=== PATIENT | male | born 1960 ===

== ENCOUNTER 2023-06-07 15:01 | Inpatient (IN) | payer MEDICARE, MEDICAID, SELFPAY ==
[2023-06-07 16:19] VITALS: BP 108/61; PULSE 79; RESP 16; TEMP 36.5; O2SAT 94
[2023-06-07 16:21] VITALS: BMI 29.4
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
[2023-06-07 19:50] VITALS: BP 125/78; PULSE 92; RESP 18; TEMP 36.6; O2SAT 98
[2023-06-07] MEDS: clonazePAM 1 MG TABLET PO (21:54)
[2023-06-07] MEDS: Divalproex Sodium 500 MG TABLET.DR PO (21:54)
[2023-06-07] MEDS: risperiDONE 1 MG TABLET PO (21:55)
[2023-06-07] MEDS: traZODone HCL 50 MG TABLET PO (21:55)
[2023-06-07] MEDS: Acetaminophen 325 MG TABLET 650 MG PO (23:00)
[2023-06-08 06:00] VITALS: BP 111/58; PULSE 74; TEMP 36.3; O2SAT 95
[2023-06-08] MEDS: Levothyroxine Sodium 50 MCG TABLET PO (06:24)
[2023-06-08] MEDS: Omeprazole 40 MG CAPSULE.DR PO (06:57)
[2023-06-08] MEDS: Divalproex Sodium 500 MG TABLET.DR PO ×3 (08:30→21:54)
[2023-06-08] MEDS: Tamsulosin HCL 0.4 MG CAPSULE PO (08:30)
[2023-06-08] MEDS: FLUoxetine HCl 20 MG CAPSULE 60 MG PO (08:30)
[2023-06-08] MEDS: risperiDONE 1 MG TABLET PO ×2 (08:31→21:54)
[2023-06-08] MEDS: clonazePAM 1 MG TABLET PO ×2 (08:31→21:54)
[2023-06-08] MEDS: Acetaminophen 325 MG TABLET 650 MG PO (08:34)
[2023-06-08 08:46] LABS: MANUAL DIFF FLAG NO
[2023-06-08 08:48] LABS: Basophils Percent Auto 0.3 % (0-2); Eosinophils Absolute Auto 0.2 X10*3/uL (0.0-0.4); Eosinophils Percent Auto 2.4 % (0-4); Hematocrit 37.6 % (42.0-52.0); Hemoglobin 12.7 g/dl (14.0-18.0); Imm Gran Abs Auto 0.03 X10*3/uL (0.00-0.03); Imm Gran Pct Auto 0.5 % (0.0-0.4); Lymphocytes Absolute Auto 2.8 X10*3/uL (1.2-4.9); Lymphocytes Percent Auto 43.3 % (20-40); Mean Corpuscular HGB Conc 33.8 g/dl (31.0-36.0); Mean Corpuscular Hemoglobin 31.1 pg (27.0-33.0); Mean Corpuscular Volume 91.9 fL (80.0-98.0); Monocytes Absolute Auto 0.7 X10*3/uL (0.1-1.2); Monocytes Percent Auto 10.8 % (2-11); Neutrophils Absolute Auto 2.7 x10*3/uL (2.0-8.3); Neutrophils Percent Auto 42.7 % (45-73); Platelet Count 163 X10*3/uL (160-400); Red Blood Count 4.09 X10*6/uL (4.60-5.80); White Blood Count 6.4 X10*3/uL (4.8-10.8)
[2023-06-08 08:57] LABS: Estimated Average Glucose 97 mg/dL
[2023-06-08 09:12] LABS: Alanine Aminotransferase 33 U/L (0-40); Albumin Level 3.5 g/dL (3.5-5.0); Alkaline Phosphatase 40 U/L (39-117); Anion Gap 12 (12-20); Aspartate Amino Transferase 21 U/L (5-37); Bilirubin Total 0.3 mg/dL (0.0-1.0); Blood Urea Nitrogen 15 mg/dL (9-16); Calcium 9.3 mg/dL (8.4-10.2); Carbon Dioxide 31 mmol/L (22-29); Chloride 104 mmol/L (96-108); Cholesterol 261 mg/dL (<200); Creatinine Clr Calc Pharmacy 95.3; Estimated Glomerular Filt Rate > 60; Glucose Fasting 111 mg/dL (60-99); HDL Cholesterol 50 mg/dL (>40); LDL Cholesterol Calculated 168 mg/dL (<100); Potassium 4.2 mmol/L (3.3-5.1); Sodium 143 mmol/L (135-145); Total Protein 6.1 g/dL (6.5-8.0); Triglycerides 215 mg/dL (<150)
--- NOTE | 2023-06-08 11:31 | P.CONHOSP_ITS ---
History of Present Illness Data of Consult Service Date: 06/08/23 Primary Care Provider: Unknown Physician HPI Reason for consult: Admission H&P Pt is a 62-year-old male with a PMH significant for?hypothyroidism, GERD, BPH, OCD, and autism spectrum disorder who is admitted to M3 psychiatry unit for increasing aggressiveness and provocative behavior. Patient presents from a rest home where he has apparently been experiencing intermittent incontinence of urine and also defecating in a bag which he would then give to staff members. Medical consult for admission H&P. ?Patient seen resting comfortably on his back in his room. Patient states that he has been experiencing lower leg swelling of an undetermined amount of time. Patient does state this is a recent development. However, patient is not the most reliable of historians and is unable to provide much PMH. Patient otherwise has no acute medical complaints at this time. Denies chest pain/pressure, palpitations. No shortness of breath. Denies fever, chills, nausea, vomiting, abdominal pain. No changes to bowel or bladder habits. Labs reviewed, significant for mild normocytic anemia of 12.7/37.6, elevated triglycerides and cholesterol, but otherwise unremarkable. Review of Systems 2 Review of Systems: Lower leg edema bilaterally Otherwise patient has no acute medical complaints at this time [facility] Medical History (Updated 06/08/23 @ 12:49 by ROCCO Funez) Autism spectrum disorder OCD (obsessive compulsive disorder) GERD (gastroesophageal reflux disease) Hypothyroidism BPH (benign prostatic hyperplasia) Household Members: Other Household Members Other:: Lives in Intermediate Housing: Assisted Living Facility Do you presently have visiting nurse or other home services: No Patient Tobacco Use Status: Never used Tobacco Smoked in Last 30 Days: No e-Cigarette/Vaping Use: Never Used Patient Interested in Nicotine Replacement: No Patient Given Instructions on How to Stop Smoking: No Second Hand Smoke Exposure: No Use of substances other than those prescribed or required for medical reasons: No Currently Displaying Signs/Symptoms of Drug Intoxication Withdrawal: No Have you been hit, kicked, punched, or otherwise hurt by someone within the past year? If so, by whom?: No Do you feel safe in your current relationship?: No Current Relationship Is there a partner from a previous relationship who is making you feel unsafe now?: No Are you made to feel afraid or neglected: No Spiritual Healthcare Practices: None Reported Druze Healthcare Practices: None Reported Cultural Healthcare Practices: None Reported Advance Directives: No Advance Directives Information Provided: No Do you have thoughts of harming others: None Do you have a plan to hurt others: No Plan Recently lost weight without trying: No How much weight loss: Not applicable Eating poorly because of decreased appetite: No Nutrition screen score: 0 Nutrition Risks: No Nutritional Risk Poor oral hygiene: No Meds Allergies Allergy/AdvReac Type Severity Reaction Status Date / Time Penicillins Allergy Unknown Verified 06/07/23 16:27 Active Medications: Current Medications Acetaminophen (Acetaminophen 325 Mg Tablet) 650 mg PO Q6H PRN PRN Reason: Headache/Pain Mild Scale (1-3) Last Admin: 06/08/23 08:34 Dose: 650 mg Al Hydroxide/Mg Hydroxide (Magnesium Hydrox/Alum Hydrox 30 Ml Oral.Susp) 30 ml PO Q6H PRN PRN Reason: Heartburn/Nausea Clonazepam (Clonazepam 1 Mg Tablet) 1 mg PO BID REPLACED BY [facility] Last Admin: 06/08/23 08:31 Dose: 1 mg Divalproex Sodium (Divalproex Sodium 500 Mg Tablet.) 500 mg PO TID REPLACED BY [facility] Last Admin: 06/08/23 08:30 Dose: 500 mg Fluoxetine HCl (Fluoxetine Hcl 20 Mg Capsule) 60 mg PO DAILY REPLACED BY [facility] Last Admin: 06/08/23 08:30 Dose: 60 mg Hydroxyzine HCl (Hydroxyzine Hcl 25 Mg Tablet) 25 mg PO Q6H PRN PRN Reason: Anxiety Hydroxyzine HCl (Hydroxyzine Hcl 50 Mg Tablet) 50 mg PO Q6H PRN PRN Reason: anxiety/insomnia Levothyroxine Sodium (Levothyroxine Sodium 50 Mcg Tablet) 50 mcg PO DAILY@0600 REPLACED BY [facility] Last Admin: 06/08/23 06:24 Dose: 50 mcg Lorazepam (Lorazepam 1 Mg Tablet) 1 mg PO TID PRN PRN Reason: anxiety Magnesium Hydroxide (Milk Of Magnesia 30 Ml Oral.Susp) 30 ml PO DAILY PRN PRN Reason: Constipation Nicotine (Nicotine 21 Mg Patch.Td24) 21 mg TRANSDERMA DAILY PRN PRN Reason: smoking cessation Nicotine Polacrilex (Nicotine Polacrilex 2 Mg Gum) 4 mg BUCCAL Q2H PRN PRN Reason: Nicotine Cravings Olanzapine (Olanzapine 5 Mg Tablet) 5 mg PO TID PRN PRN Reason: agitation Omeprazole (Omeprazole 40 Mg Capsule.) 40 mg PO DAILY@0630 REPLACED BY [facility] Last Admin: 06/08/23 06:57 Dose: 40 mg Risperidone (Risperidone 1 Mg Tablet) 1 mg PO BID REPLACED BY [facility] Last Admin: 06/08/23 08:31 Dose: 1 mg Tamsulosin HCl (Tamsulosin Hcl 0.4 Mg Capsule) 0.4 mg PO DAILY REPLACED BY [facility] Last Admin: 06/08/23 08:30 Dose: 0.4 mg Trazodone HCl (Trazodone Hcl 50 Mg Tablet) 50 mg PO BEDTIME MRX1 PRN PRN Reason: Insomnia Last Admin: 06/07/23 21:55 Dose: 50 mg Home Medications Medication Instructions Recorded Confirmed Last Taken Type clonazepam 1 mg disintegrating 1 mg PO BID 06/07/23 06/07/23 Unknown History tablet divalproex 500 mg tablet,extended 500 mg PO TID 06/07/23 06/07/23 Unknown History release 24 hr fluoxetine 20 mg capsule 60 mg PO QAM 06/07/23 06/07/23 Unknown History hydroxyzine HCl 50 mg tablet 50 mg PO Q6-8H PRN Anxiety/Insomnia 06/07/23 06/07/23 Unknown History levothyroxine 50 mcg tablet 50 mcg PO DAILY 06/07/23 06/07/23 Unknown History pantoprazole 40 mg tablet,delayed 40 mg PO DAILY 06/07/23 06/07/23 Unknown History release risperidone 1 mg disintegrating 1 mg PO BID 06/07/23 06/07/23 Unknown History tablet tamsulosin 0.4 mg capsule 0.4 mg PO DAILY 06/07/23 06/07/23 Unknown History Physical Exam 2 Vital Signs and Narrative: Vital Signs: Last Vital Signs Temp 97.3 F 06/08/23 06:00 Pulse 74 06/08/23 06:00 Resp 18 06/07/23 19:50 BP 111/58 L 06/08/23 06:00 Pulse Ox 95 06/08/23 06:00 O2 Del Method Room Air 06/08/23 06:00 BMI result Body Mass Index 29.4 Constitutional: Alert, in no acute distress. Mental Status: Oriented to person, place and time. Eyes: Pupils are equal, round, and reactive to light. Ear, Nose, and Throat: Oropharynx clear, mucous membranes moist. Ears and nose without deformities. Trachea midline. Respiratory: Clear to auscultation bilaterally. No wheezing, rales, or rhonchi. Cardiovascular: S1, S2 regular. No murmurs, rubs, or gallops. Gastrointestinal: Abdomen soft, non-tender, non-distended. Normal bowel sounds. Neurologic: Cranial nerves II-XII are grossly intact bilaterally. No focal neurological deficits. Moves all extremities spontaneously. Skin: Warm, dry. Musculoskeletal: No cyanosis or clubbing. Extremities: 1+ pitting bilateral lower leg edema. Psychiatric: Normal mood and affect. Results Labs 06/08/23 08:21 06/08/23 08:21 Labs: Laboratory Results - last 24 hr 06/08/23 08:21 MCV 91.9 MCH 31.1 MCHC 33.8 RDW 13.0 Plt Count 163 MPV 10.0 Immature Gran % (Auto) 0.5 H Neut % (Auto) 42.7 L Lymph % (Auto) 43.3 H [place] % (Auto) 10.8 Eos % (Auto) 2.4 Baso % (Auto) 0.3 Lymph # (Auto) 2.8 [place] # (Auto) 0.7 Eos # (Auto) 0.2 Baso # (Auto) 0.0 Abs Immat Gran (auto) 0.03 Absolute Neuts (auto) 2.7 Absolute Nucleated RBC 0.000 Nucleated RBC % (auto) 0.0 Anion Gap 12 Estim Creat Clear Calc 95.3 Estimated GFR > 60 Fasting Glucose 111 H Estimat Average Glucose 97 Hemoglobin A1c % 5.0 Calcium 9.3 Total Bilirubin 0.3 AST 21 ALT 33 Alkaline Phosphatase 40 Total Protein 6.1 L Albumin 3.5 Triglycerides 215 H Cholesterol 261 H LDL Cholesterol, Calc 168 H HDL Cholesterol 50 Assessment and Plan (1) Medical clearance for psychiatric admission: Status: Acute Plan Pt is a 62-year-old male with a PMH significant for?hypothyroidism, GERD, BPH, OCD, and autism spectrum disorder who is admitted to M3 psychiatry unit for increasing aggressiveness and provocative behavior. Patient presents from a rest home where he has apparently been experiencing intermittent incontinence of urine and also defecating in a bag which he would then give to staff members. Medical consult for admission H&P. Mood disorder Plan as per Psychiatry Edema Patient presents with bilateral lower leg edema Low suspicion for CHF: Patient denies orthopnea, no SOB, no history of CHF Patient should elevate legs while sleeping, ambulate as tolerated, consider compression stockings if edema persists Hypothyroidism Continue levothyroxine BPH Continue tamsulosin GERD Continue PPI Thank you for allowing us to participate in the care of this patient. Signing off at this time. Please re-consult if any acute complaints or issues arise.
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
[2023-06-08 20:00] VITALS: BP 134/72; PULSE 72; RESP 16; TEMP 36.7; O2SAT 97
[2023-06-08] MEDS: traZODone HCL 50 MG TABLET PO (21:54)
[2023-06-09] MEDS: Levothyroxine Sodium 50 MCG TABLET PO (06:12)
[2023-06-09] MEDS: Omeprazole 40 MG CAPSULE.DR PO (07:06)
[2023-06-09 07:20] VITALS: BP 108/52; PULSE 66; TEMP 36.6; O2SAT 93
[2023-06-09] MEDS: FLUoxetine HCl 20 MG CAPSULE 60 MG PO (08:07)
[2023-06-09] MEDS: risperiDONE 1 MG TABLET PO ×2 (08:08→23:02)
[2023-06-09] MEDS: Tamsulosin HCL 0.4 MG CAPSULE PO (08:08)
[2023-06-09] MEDS: Divalproex Sodium 500 MG TABLET.DR PO ×3 (08:08→23:02)
[2023-06-09] MEDS: clonazePAM 1 MG TABLET PO ×2 (08:08→23:02)
--- NOTE | 2023-06-09 08:51 | P.PNPSI_ITS ---
Subjective Subjective Date of Service: 06/09/23 Reason For Visit: OCD, autism spectrum disorder Subjective Notes: Conditional Voluntary Interim History: Pt in bed, minimally engaging in conversation. He denies SI/HI. he denies VH/AH. He reports sleeping through the night but still tired during the day. He denies any physical concerns. Encouraged to get out of bed. No behavioral concerns. Review of Systems Review of Systems Lower leg edema bilaterally Otherwise patient has no acute medical complaints at this time Yes Unobtainable due to mental status Mental Status Exam Mental Status Exam Patient Appearance: Appropriate ( in hospital attire) and Unkempt Patient Orientation: Person and Situation Level of Consciousness: Awake Patient Behavior: Guarded and Passive Mood Description: Calm Affect Description: Blunted Patient Cognition Impaired: Yes Ability to Follow Directions: Fair Speech Pattern: Clear Diagnostics Vital Signs (24Hr): Vital Signs - 24 hr 06/08/23 20:00 06/09/23 07:20 Temperature 98.1 F 97.9 F Pulse Rate 72 93 Respiratory Rate 16 Blood Pressure 134/72 108/52 L Pulse Oximetry 97 66 L Oxygen Delivery Method Room Air Room Air BMI result Body Mass Index 29.4 Labs 06/08/23 08:21 06/08/23 08:21 Labs: Laboratory Results - last 48 hr 06/08/23 08:21 WBC 6.4 RBC 4.09 L Hgb 12.7 L Hct 37.6 L MCV 91.9 MCH 31.1 MCHC 33.8 RDW 13.0 Plt Count 163 MPV 10.0 Immature Gran % (Auto) 0.5 H Neut % (Auto) 42.7 L Lymph % (Auto) 43.3 H [place] % (Auto) 10.8 Eos % (Auto) 2.4 Baso % (Auto) 0.3 Lymph # (Auto) 2.8 [place] # (Auto) 0.7 Eos # (Auto) 0.2 Baso # (Auto) 0.0 Abs Immat Gran (auto) 0.03 Absolute Neuts (auto) 2.7 Absolute Nucleated RBC 0.000 Nucleated RBC % (auto) 0.0 Sodium 143 Potassium 4.2 Chloride 104 Carbon Dioxide 31 H Anion Gap 12 BUN 15 Creatinine 0.86 Estim Creat Clear Calc 95.3 Estimated GFR > 60 Fasting Glucose 111 H Estimat Average Glucose 97 Hemoglobin A1c % 5.0 Calcium 9.3 Total Bilirubin 0.3 AST 21 ALT 33 Alkaline Phosphatase 40 Total Protein 6.1 L Albumin 3.5 Triglycerides 215 H Cholesterol 261 H LDL Cholesterol, Calc 168 H HDL Cholesterol 50 Medications Medications Current Medications Acetaminophen (Acetaminophen 325 Mg Tablet) 650 mg PO Q6H PRN PRN Reason: Headache/Pain Mild Scale (1-3) Last Admin: 06/08/23 08:34 Dose: 650 mg Al Hydroxide/Mg Hydroxide (Magnesium Hydrox/Alum Hydrox 30 Ml Oral.Susp) 30 ml PO Q6H PRN PRN Reason: Heartburn/Nausea Clonazepam (Clonazepam 1 Mg Tablet) 1 mg PO BID [facility] Last Admin: 06/09/23 08:08 Dose: 1 mg Divalproex Sodium (Divalproex Sodium 500 Mg Tablet.) 500 mg PO TID [facility] Last Admin: 06/09/23 08:08 Dose: 500 mg Fluoxetine HCl (Fluoxetine Hcl 20 Mg Capsule) 60 mg PO DAILY [facility] Last Admin: 06/09/23 08:07 Dose: 60 mg Hydroxyzine HCl (Hydroxyzine Hcl 25 Mg Tablet) 25 mg PO Q6H PRN PRN Reason: Anxiety Hydroxyzine HCl (Hydroxyzine Hcl 50 Mg Tablet) 50 mg PO Q6H PRN PRN Reason: anxiety/insomnia Levothyroxine Sodium (Levothyroxine Sodium 50 Mcg Tablet) 50 mcg PO DAILY@0600 [facility] Last Admin: 06/09/23 06:12 Dose: 50 mcg Lorazepam (Lorazepam 1 Mg Tablet) 1 mg PO TID PRN PRN Reason: anxiety Magnesium Hydroxide (Milk Of Magnesia 30 Ml Oral.Susp) 30 ml PO DAILY PRN PRN Reason: Constipation Nicotine (Nicotine 21 Mg Patch.Td24) 21 mg TRANSDERMA DAILY PRN PRN Reason: smoking cessation Nicotine Polacrilex (Nicotine Polacrilex 2 Mg Gum) 4 mg BUCCAL Q2H PRN PRN Reason: Nicotine Cravings Olanzapine (Olanzapine 5 Mg Tablet) 5 mg PO TID PRN PRN Reason: agitation Omeprazole (Omeprazole 40 Mg Capsule.) 40 mg PO DAILY@0630 [facility] Last Admin: 06/09/23 07:06 Dose: 40 mg Risperidone (Risperidone 1 Mg Tablet) 1 mg PO BID [facility] Last Admin: 06/09/23 08:08 Dose: 1 mg Tamsulosin HCl (Tamsulosin Hcl 0.4 Mg Capsule) 0.4 mg PO DAILY [facility] Last Admin: 06/09/23 08:08 Dose: 0.4 mg Trazodone HCl (Trazodone Hcl 50 Mg Tablet) 50 mg PO BEDTIME MRX1 PRN PRN Reason: Insomnia Last Admin: 06/08/23 21:54 Dose: 50 mg Allergies Allergies Allergy/AdvReac Type Severity Reaction Status Date / Time Penicillins Allergy Unknown Verified 06/07/23 16:27 Assessment & Plan Assessment & Plan (1) Psychosis: Status: Acute Code(s): F29 - Unspecified psychosis not due to a substance or known physiological condition Plan the patient is a middle-aged male with poor social support recently discharged from [facility] due to sexually inappropriate behavior was brought from another center due to sexual disinhibition, poor impulse control a and psychotic symptoms. The patient is a very poor historian he is unable to provide further details regarding his past medical history or psychiatric history. Plan 06/09 continue tx. Reason for continued inpatient stay Substantial Risk for: inability to function Time Spent With Patient Time: Total time managing care of this patient today ____ minutes.
[2023-06-09 19:49] VITALS: BP 122/59; PULSE 90; TEMP 36.8; O2SAT 95
[2023-06-09] MEDS: traZODone HCL 50 MG TABLET PO (23:03)
[2023-06-10 07:40] VITALS: BP 130/66; PULSE 85; RESP 24; TEMP 36.3; O2SAT 93
[2023-06-10] MEDS: Levothyroxine Sodium 50 MCG TABLET PO (10:00)
[2023-06-10] MEDS: Divalproex Sodium 500 MG TABLET.DR PO ×3 (10:00→21:58)
[2023-06-10] MEDS: Omeprazole 40 MG CAPSULE.DR PO (10:00)
[2023-06-10] MEDS: risperiDONE 1 MG TABLET PO ×2 (10:00→21:58)
[2023-06-10] MEDS: Tamsulosin HCL 0.4 MG CAPSULE PO (10:00)
[2023-06-10] MEDS: clonazePAM 1 MG TABLET PO ×2 (10:00→21:58)
[2023-06-10] MEDS: FLUoxetine HCl 20 MG CAPSULE 60 MG PO (10:00)
[2023-06-10] MEDS: Acetaminophen 325 MG TABLET 650 MG PO (10:27)
--- NOTE | 2023-06-10 14:05 | HO.PSYCHPN ---
Subjective Subjective Date of Service: 06/10/23 Reason For Visit: OCD, autism spectrum disorder Subjective Notes: Conditional Voluntary Interim History: Pt again in bed, minimally engaging in conversation. He denies SI/HI. he denies VH/AH. He reports sleeping through the night but still tired during the day. He denies any physical concerns. Encouraged to get out of bed. No behavioral concerns. Review of Systems Review of Systems Lower leg edema bilaterally Otherwise patient has no acute medical complaints at this time Yes Unobtainable due to mental status Mental Status Exam Mental Status Exam Patient Appearance: Appropriate ( in hospital attire) and Unkempt Patient Orientation: Person and Situation Level of Consciousness: Awake Patient Behavior: Guarded and Passive Mood Description: Calm Affect Description: Blunted Patient Cognition Impaired: Yes Ability to Follow Directions: Fair Speech Pattern: Clear Diagnostics Vital Signs (24Hr): Vital Signs - 24 hr 06/09/23 19:49 06/10/23 07:40 Temperature 98.2 F 97.3 F Pulse Rate 90 85 Respiratory Rate 24 H Blood Pressure 122/59 L 130/66 Pulse Oximetry 95 93 Oxygen Delivery Method Room Air Room Air BMI result Body Mass Index 29.4 Labs 06/08/23 08:21 06/08/23 08:21 Medications Medications Current Medications Acetaminophen (Acetaminophen 325 Mg Tablet) 650 mg PO Q6H PRN PRN Reason: Headache/Pain Mild Scale (1-3) Last Admin: 06/10/23 10:27 Dose: 650 mg Al Hydroxide/Mg Hydroxide (Magnesium Hydrox/Alum Hydrox 30 Ml Oral.Susp) 30 ml PO Q6H PRN PRN Reason: Heartburn/Nausea Clonazepam (Clonazepam 1 Mg Tablet) 1 mg PO BID [facility] Last Admin: 06/10/23 10:00 Dose: 1 mg Divalproex Sodium (Divalproex Sodium 500 Mg Tablet.Dr) 500 mg PO TID [facility] Last Admin: 06/10/23 10:00 Dose: 500 mg Fluoxetine HCl (Fluoxetine Hcl 20 Mg Capsule) 60 mg PO DAILY [facility] Last Admin: 06/10/23 10:00 Dose: 60 mg Hydroxyzine HCl (Hydroxyzine Hcl 25 Mg Tablet) 25 mg PO Q6H PRN PRN Reason: Anxiety Hydroxyzine HCl (Hydroxyzine Hcl 50 Mg Tablet) 50 mg PO Q6H PRN PRN Reason: anxiety/insomnia Levothyroxine Sodium (Levothyroxine Sodium 50 Mcg Tablet) 50 mcg PO DAILY@0600 [facility] Last Admin: 06/10/23 10:00 Dose: 50 mcg Lorazepam (Lorazepam 1 Mg Tablet) 1 mg PO TID PRN PRN Reason: anxiety Magnesium Hydroxide (Milk Of Magnesia 30 Ml Oral.Susp) 30 ml PO DAILY PRN PRN Reason: Constipation Nicotine (Nicotine 21 Mg Patch.Td24) 21 mg TRANSDERMA DAILY PRN PRN Reason: smoking cessation Nicotine Polacrilex (Nicotine Polacrilex 2 Mg Gum) 4 mg BUCCAL Q2H PRN PRN Reason: Nicotine Cravings Olanzapine (Olanzapine 5 Mg Tablet) 5 mg PO TID PRN PRN Reason: agitation Omeprazole (Omeprazole 40 Mg Capsule.Dr) 40 mg PO DAILY@0630 [facility] Last Admin: 06/10/23 10:00 Dose: 40 mg Risperidone (Risperidone 1 Mg Tablet) 1 mg PO BID [facility] Last Admin: 06/10/23 10:00 Dose: 1 mg Tamsulosin HCl (Tamsulosin Hcl 0.4 Mg Capsule) 0.4 mg PO DAILY [facility] Last Admin: 06/10/23 10:00 Dose: 0.4 mg Trazodone HCl (Trazodone Hcl 50 Mg Tablet) 50 mg PO BEDTIME MRX1 PRN PRN Reason: Insomnia Last Admin: 06/09/23 23:03 Dose: 50 mg Allergies Allergies Allergy/AdvReac Type Severity Reaction Status Date / Time Penicillins Allergy Unknown Verified 06/07/23 16:27 Assessment & Plan Assessment & Plan (1) Psychosis: Status: Acute Code(s): F29 - Unspecified psychosis not due to a substance or known physiological condition Plan the patient is a middle-aged male with poor social support recently discharged from [place] due to sexually inappropriate behavior was brought from another center due to sexual disinhibition, poor impulse control a and psychotic symptoms. The patient is a very poor historian he is unable to provide further details regarding his past medical history or psychiatric history. Plan 06/09 continue tx. 06/10 continue tx. Reason for continued inpatient stay Substantial Risk for: inability to function Time Spent With Patient Time: Total time managing care of this patient today ____ minutes.
[2023-06-10 19:35] VITALS: BP 123/75; PULSE 106; RESP 18; TEMP 36.9
[2023-06-10] MEDS: traZODone HCL 50 MG TABLET PO (21:57)
[2023-06-11] MEDS: Levothyroxine Sodium 50 MCG TABLET PO (06:35)
[2023-06-11] MEDS: Omeprazole 40 MG CAPSULE.DR PO (06:36)
[2023-06-11 07:55] VITALS: BP 121/62; PULSE 78; RESP 20; TEMP 36.4; O2SAT 93
[2023-06-11] MEDS: Tamsulosin HCL 0.4 MG CAPSULE PO (09:16)
[2023-06-11] MEDS: risperiDONE 1 MG TABLET PO ×2 (09:16→20:51)
[2023-06-11] MEDS: clonazePAM 1 MG TABLET PO ×2 (09:16→20:51)
[2023-06-11] MEDS: FLUoxetine HCl 20 MG CAPSULE 60 MG PO (09:16)
[2023-06-11] MEDS: Divalproex Sodium 500 MG TABLET.DR PO ×3 (09:16→20:51)
[2023-06-11] MEDS: Acetaminophen 325 MG TABLET 650 MG PO (09:17)
--- NOTE | 2023-06-11 16:40 | P.PNPSI_ITS ---
Subjective Subjective Date of Service: 06/11/23 Reason For Visit: OCD, autism spectrum disorder Subjective Notes: Conditional Voluntary Interim History: Pt more visible today. out in the milieu. He denies SI/HI. he denies VH/AH.Superficial about his reports. He denies any physical concerns. Encouraged to get out of bed. No behavioral concerns. Review of Systems Review of Systems Lower leg edema bilaterally Otherwise patient has no acute medical complaints at this time Yes Unobtainable due to mental status Mental Status Exam Mental Status Exam Patient Appearance: Appropriate ( in hospital attire) and Unkempt Patient Orientation: Person and Situation Level of Consciousness: Awake Patient Behavior: Guarded and Passive Mood Description: Calm Affect Description: Blunted Patient Cognition Impaired: Yes Ability to Follow Directions: Fair Speech Pattern: Clear Diagnostics Vital Signs (24Hr): Vital Signs - 24 hr 06/10/23 19:35 06/11/23 07:55 Temperature 98.4 F 97.6 F Pulse Rate 106 H 78 Respiratory Rate 18 20 Blood Pressure 123/75 121/62 Pulse Oximetry 93 Oxygen Delivery Method Room Air BMI result Body Mass Index 29.4 Labs 06/08/23 08:21 06/08/23 08:21 Medications Medications Current Medications Acetaminophen (Acetaminophen 325 Mg Tablet) 650 mg PO Q6H PRN PRN Reason: Headache/Pain Mild Scale (1-3) Last Admin: 06/11/23 09:17 Dose: 650 mg Al Hydroxide/Mg Hydroxide (Magnesium Hydrox/Alum Hydrox 30 Ml Oral.Susp) 30 ml PO Q6H PRN PRN Reason: Heartburn/Nausea Clonazepam (Clonazepam 1 Mg Tablet) 1 mg PO BID [facility] Last Admin: 06/11/23 09:16 Dose: 1 mg Divalproex Sodium (Divalproex Sodium 500 Mg Tablet.) 500 mg PO TID [facility] Last Admin: 06/11/23 15:42 Dose: 500 mg Fluoxetine HCl (Fluoxetine Hcl 20 Mg Capsule) 60 mg PO DAILY [facility] Last Admin: 06/11/23 09:16 Dose: 60 mg Hydroxyzine HCl (Hydroxyzine Hcl 25 Mg Tablet) 25 mg PO Q6H PRN PRN Reason: Anxiety Hydroxyzine HCl (Hydroxyzine Hcl 50 Mg Tablet) 50 mg PO Q6H PRN PRN Reason: anxiety/insomnia Levothyroxine Sodium (Levothyroxine Sodium 50 Mcg Tablet) 50 mcg PO DAILY@0600 [facility] Last Admin: 06/11/23 06:35 Dose: 50 mcg Lorazepam (Lorazepam 1 Mg Tablet) 1 mg PO TID PRN PRN Reason: anxiety Magnesium Hydroxide (Milk Of Magnesia 30 Ml Oral.Susp) 30 ml PO DAILY PRN PRN Reason: Constipation Nicotine (Nicotine 21 Mg Patch.Td24) 21 mg TRANSDERMA DAILY PRN PRN Reason: smoking cessation Nicotine Polacrilex (Nicotine Polacrilex 2 Mg Gum) 4 mg BUCCAL Q2H PRN PRN Reason: Nicotine Cravings Olanzapine (Olanzapine 5 Mg Tablet) 5 mg PO TID PRN PRN Reason: agitation Omeprazole (Omeprazole 40 Mg Capsule.Dr) 40 mg PO DAILY@0630 [facility] Last Admin: 06/11/23 06:36 Dose: 40 mg Risperidone (Risperidone 1 Mg Tablet) 1 mg PO BID [facility] Last Admin: 06/11/23 09:16 Dose: 1 mg Tamsulosin HCl (Tamsulosin Hcl 0.4 Mg Capsule) 0.4 mg PO DAILY [facility] Last Admin: 06/11/23 09:16 Dose: 0.4 mg Trazodone HCl (Trazodone Hcl 50 Mg Tablet) 50 mg PO BEDTIME MRX1 PRN PRN Reason: Insomnia Last Admin: 06/10/23 21:57 Dose: 50 mg Allergies Allergies Allergy/AdvReac Type Severity Reaction Status Date / Time Penicillins Allergy Unknown Verified 06/07/23 16:27 Assessment & Plan Assessment & Plan (1) Psychosis: Status: Acute Code(s): F29 - Unspecified psychosis not due to a substance or known physiological condition Plan the patient is a middle-aged male with poor social support recently discharged from [place] due to sexually inappropriate behavior was brought from another center due to sexual disinhibition, poor impulse control a and psychotic symptoms. The patient is a very poor historian he is unable to provide further details regarding his past medical history or psychiatric history. Plan 06/09 continue tx. 06/10 continue tx. 06/11 continue tx. Reason for continued inpatient stay Substantial Risk for: inability to function Time Spent With Patient Time: Total time managing care of this patient today ____ minutes.
[2023-06-11 20:15] VITALS: BP 125/77; PULSE 105; TEMP 36.6; O2SAT 93
[2023-06-11] MEDS: hydrOXYzine HCL 50 MG TABLET PO (20:52)
[2023-06-12] MEDS: Levothyroxine Sodium 50 MCG TABLET PO (06:34)
[2023-06-12] MEDS: Omeprazole 40 MG CAPSULE.DR PO (06:34)
[2023-06-12 08:00] VITALS: BP 113/61; PULSE 65; RESP 16; TEMP 36.2; O2SAT 98
[2023-06-12] MEDS: risperiDONE 1 MG TABLET PO ×2 (08:51→21:04)
[2023-06-12] MEDS: FLUoxetine HCl 20 MG CAPSULE 60 MG PO (08:51)
[2023-06-12] MEDS: clonazePAM 1 MG TABLET PO ×2 (08:51→21:04)
[2023-06-12] MEDS: Divalproex Sodium 500 MG TABLET.DR PO ×3 (08:51→21:03)
[2023-06-12] MEDS: Tamsulosin HCL 0.4 MG CAPSULE PO (08:51)
--- NOTE | 2023-06-12 12:39 | PC.NURSE ---
Sagar was incontinent of urine in bed this morning. He was assisted to shower by this RN. He displayed OCD behaviors during shower . He was resistant to removing old ekg lead stickers and old bandaids. He was then adamant that he must keep them for reuse. He was persuaded to remove them and allow this nurse to throw away the used bandages if new ones were provided to him.
--- NOTE | 2023-06-12 15:32 | HO.PSYCHPN ---
Subjective Subjective Date of Service: 06/12/23 Reason For Visit: OCD, autism spectrum disorder Interim History: appears slowed, low intellectual function. poor historian, unable to supply a cogent narrative for how he came to be in the hospital. per staff, pleasant, visible, social. eating well, sleeping well. tremor in RLE. poor hygiene. no concerning behaviors. Mental Status Exam Mental Status Exam Narrative: calm, cooperative. no PMA/PMR. speech decr amount, loudness. incr latency. decr prosody. thoughts linear and logical. affect constricted, hypo-intense, non-labile. mood not assessed. no SI/HI/AVH expressed. Diagnostics Vital Signs (24Hr): Vital Signs - 24 hr 06/11/23 20:15 06/12/23 08:00 Temperature 97.8 F 97.1 F Pulse Rate 105 H 65 Respiratory Rate 16 Blood Pressure 125/77 113/61 Pulse Oximetry 93 98 Oxygen Delivery Method Room Air Room Air BMI result Body Mass Index 29.4 Labs 06/08/23 08:21 06/08/23 08:21 Medications Medications Current Medications Acetaminophen (Acetaminophen 325 Mg Tablet) 650 mg PO Q6H PRN PRN Reason: Headache/Pain Mild Scale (1-3) Last Admin: 06/11/23 09:17 Dose: 650 mg Al Hydroxide/Mg Hydroxide (Magnesium Hydrox/Alum Hydrox 30 Ml Oral.Susp) 30 ml PO Q6H PRN PRN Reason: Heartburn/Nausea Clonazepam (Clonazepam 1 Mg Tablet) 1 mg PO BID [facility] Last Admin: 06/12/23 08:51 Dose: 1 mg Divalproex Sodium (Divalproex Sodium 500 Mg Tablet.) 500 mg PO TID [facility] Last Admin: 06/12/23 14:50 Dose: 500 mg Fluoxetine HCl (Fluoxetine Hcl 20 Mg Capsule) 60 mg PO DAILY [facility] Last Admin: 06/12/23 08:51 Dose: 60 mg Hydroxyzine HCl (Hydroxyzine Hcl 25 Mg Tablet) 25 mg PO Q6H PRN PRN Reason: Anxiety Hydroxyzine HCl (Hydroxyzine Hcl 50 Mg Tablet) 50 mg PO Q6H PRN PRN Reason: anxiety/insomnia Last Admin: 06/11/23 20:52 Dose: 50 mg Levothyroxine Sodium (Levothyroxine Sodium 50 Mcg Tablet) 50 mcg PO DAILY@0600 [facility] Last Admin: 06/12/23 06:34 Dose: 50 mcg Lorazepam (Lorazepam 1 Mg Tablet) 1 mg PO TID PRN PRN Reason: anxiety Magnesium Hydroxide (Milk Of Magnesia 30 Ml Oral.Susp) 30 ml PO DAILY PRN PRN Reason: Constipation Nicotine (Nicotine 21 Mg Patch.Td24) 21 mg TRANSDERMA DAILY PRN PRN Reason: smoking cessation Nicotine Polacrilex (Nicotine Polacrilex 2 Mg Gum) 4 mg BUCCAL Q2H PRN PRN Reason: Nicotine Cravings Olanzapine (Olanzapine 5 Mg Tablet) 5 mg PO TID PRN PRN Reason: agitation Omeprazole (Omeprazole 40 Mg Capsule.Dr) 40 mg PO DAILY@0630 [facility] Last Admin: 06/12/23 06:34 Dose: 40 mg Risperidone (Risperidone 1 Mg Tablet) 1 mg PO BID [facility] Last Admin: 06/12/23 08:51 Dose: 1 mg Tamsulosin HCl (Tamsulosin Hcl 0.4 Mg Capsule) 0.4 mg PO DAILY [facility] Last Admin: 06/12/23 08:51 Dose: 0.4 mg Trazodone HCl (Trazodone Hcl 50 Mg Tablet) 50 mg PO BEDTIME MRX1 PRN PRN Reason: Insomnia Last Admin: 06/10/23 21:57 Dose: 50 mg Allergies Allergies Allergy/AdvReac Type Severity Reaction Status Date / Time Penicillins Allergy Unknown Verified 06/07/23 16:27 Assessment & Plan Assessment & Plan (1) Psychosis: Status: Acute Code(s): F29 - Unspecified psychosis not due to a substance or known physiological condition Plan the patient is a middle-aged male with poor social support recently discharged from [place] due to sexually inappropriate behavior was brought from another center due to sexual disinhibition, poor impulse control a and psychotic symptoms. The patient is a very poor historian he is unable to provide further details regarding his past medical history or psychiatric history. Plan 06/09: continue tx. 06/10: continue tx. 06/11: continue tx. 06/12: behaviors in control, no inappropriate sexual conduct. continue current mgmt. outpt staff to come tomorrow to assess pt's level of functioning. Reason for continued inpatient stay Substantial Risk for: harm to others and inability to function Time Spent With Patient Time: Total time managing care of this patient today _35___ minutes.
[2023-06-12 20:00] VITALS: PULSE 86; RESP 16; TEMP 36.3; O2SAT 99
[2023-06-12] MEDS: Acetaminophen 325 MG TABLET 650 MG PO (21:03)
[2023-06-13] MEDS: Levothyroxine Sodium 50 MCG TABLET PO (06:20)
[2023-06-13 08:18] VITALS: BP 116/62; PULSE 82; RESP 22; TEMP 36.5; O2SAT 92
[2023-06-13] MEDS: Omeprazole 40 MG CAPSULE.DR PO (09:18)
[2023-06-13] MEDS: clonazePAM 1 MG TABLET PO ×2 (09:18→21:23)
[2023-06-13] MEDS: risperiDONE 1 MG TABLET PO ×2 (09:18→21:23)
[2023-06-13] MEDS: Tamsulosin HCL 0.4 MG CAPSULE PO (09:18)
[2023-06-13] MEDS: FLUoxetine HCl 20 MG CAPSULE 60 MG PO (09:18)
[2023-06-13] MEDS: Divalproex Sodium 500 MG TABLET.DR PO ×3 (09:18→21:23)
--- NOTE | 2023-06-13 15:46 | P.PNPSI_ITS ---
Subjective Subjective Date of Service: 06/13/23 Reason For Visit: OCD, autism spectrum disorder Interim History: reports he did not meet with [facility] staff today. states he is eating, sleeping, making friends here. reports occasional incontinence. asks am i in trouble? some derailment. Mental Status Exam Mental Status Exam Narrative: calm, cooperative. no PMA/PMR. speech decr amount, loudness. incr latency. decr prosody. thoughts linear and logical, some derailment. affect constricted, hypo-intense, non-labile. mood not assessed. no SI/HI/AVH expressed. Diagnostics Vital Signs (24Hr): Vital Signs - 24 hr 06/12/23 20:00 06/13/23 08:18 Temperature 97.3 F 97.7 F Pulse Rate 86 82 Respiratory Rate 16 22 H Blood Pressure 116/62 Pulse Oximetry 99 92 Oxygen Delivery Method Room Air Room Air BMI result Body Mass Index 29.4 Labs 06/08/23 08:21 06/08/23 08:21 Medications Medications Current Medications Acetaminophen (Acetaminophen 325 Mg Tablet) 650 mg PO Q6H PRN PRN Reason: Headache/Pain Mild Scale (1-3) Last Admin: 06/12/23 21:03 Dose: 650 mg Al Hydroxide/Mg Hydroxide (Magnesium Hydrox/Alum Hydrox 30 Ml Oral.Susp) 30 ml PO Q6H PRN PRN Reason: Heartburn/Nausea Clonazepam (Clonazepam 1 Mg Tablet) 1 mg PO BID [facility] Last Admin: 06/13/23 09:18 Dose: 1 mg Divalproex Sodium (Divalproex Sodium 500 Mg Tablet.) 500 mg PO TID [facility] Last Admin: 06/13/23 09:18 Dose: 500 mg Fluoxetine HCl (Fluoxetine Hcl 20 Mg Capsule) 60 mg PO DAILY [facility] Last Admin: 06/13/23 09:18 Dose: 60 mg Hydroxyzine HCl (Hydroxyzine Hcl 25 Mg Tablet) 25 mg PO Q6H PRN PRN Reason: Anxiety Hydroxyzine HCl (Hydroxyzine Hcl 50 Mg Tablet) 50 mg PO Q6H PRN PRN Reason: anxiety/insomnia Last Admin: 06/11/23 20:52 Dose: 50 mg Levothyroxine Sodium (Levothyroxine Sodium 50 Mcg Tablet) 50 mcg PO DAILY@0600 [facility] Last Admin: 06/13/23 06:20 Dose: 50 mcg Lorazepam (Lorazepam 1 Mg Tablet) 1 mg PO TID PRN PRN Reason: anxiety Magnesium Hydroxide (Milk Of Magnesia 30 Ml Oral.Susp) 30 ml PO DAILY PRN PRN Reason: Constipation Nicotine (Nicotine 21 Mg Patch.Td24) 21 mg TRANSDERMA DAILY PRN PRN Reason: smoking cessation Nicotine Polacrilex (Nicotine Polacrilex 2 Mg Gum) 4 mg BUCCAL Q2H PRN PRN Reason: Nicotine Cravings Olanzapine (Olanzapine 5 Mg Tablet) 5 mg PO TID PRN PRN Reason: agitation Omeprazole (Omeprazole 40 Mg Capsule.Dr) 40 mg PO DAILY@0630 [facility] Last Admin: 06/13/23 09:18 Dose: 40 mg Risperidone (Risperidone 1 Mg Tablet) 1 mg PO BID [facility] Last Admin: 06/13/23 09:18 Dose: 1 mg Tamsulosin HCl (Tamsulosin Hcl 0.4 Mg Capsule) 0.4 mg PO DAILY [facility] Last Admin: 06/13/23 09:18 Dose: 0.4 mg Trazodone HCl (Trazodone Hcl 50 Mg Tablet) 50 mg PO BEDTIME MRX1 PRN PRN Reason: Insomnia Last Admin: 06/10/23 21:57 Dose: 50 mg Allergies Allergies Allergy/AdvReac Type Severity Reaction Status Date / Time Penicillins Allergy Unknown Verified 06/07/23 16:27 Assessment & Plan Assessment & Plan (1) Psychosis: Status: Acute Code(s): F29 - Unspecified psychosis not due to a substance or known physiological condition Plan the patient is a middle-aged male with poor social support recently discharged from [place] due to sexually inappropriate behavior was brought from another center due to sexual disinhibition, poor impulse control a and psychotic symptoms. The patient is a very poor historian he is unable to provide further details regarding his past medical history or psychiatric history. Plan 06/09: continue tx. 06/10: continue tx. 06/11: continue tx. 06/12: behaviors in control, no inappropriate sexual conduct. continue current mgmt. outpt staff to come tomorrow to assess pt's level of functioning. 06/13: stable, no concerning behaviors. continue current mgmt. Reason for continued inpatient stay Substantial Risk for: harm to others, inability to function and rapid decompensation Time Spent With Patient Time: Total time managing care of this patient today ____ minutes.
[2023-06-13 18:00] VITALS: BP 123/62; PULSE 80; RESP 20; TEMP 36.8; O2SAT 96
[2023-06-14] MEDS: Acetaminophen 325 MG TABLET 650 MG PO (02:01)
[2023-06-14] MEDS: traZODone HCL 50 MG TABLET PO ×2 (02:01→20:57)
[2023-06-14] MEDS: Levothyroxine Sodium 50 MCG TABLET PO (05:49)
--- NOTE | 2023-06-14 06:28 | PC.NURSE ---
Sagar was observed following a female MHC intermittently during the evening and he was also observed standing at the nurses station staring at the same MHC. When this technical publications writer asked the patient if he needed something he turned and walked away. Sagar denies auditory/visual hallucinations but appears internally preoccupied, he denies suicidal/homicidal ideation but endorses depression and anxiety continue to monitor for safety, continue Plan of Care
[2023-06-14] MEDS: Omeprazole 40 MG CAPSULE.DR PO (06:46)
[2023-06-14 07:15] VITALS: BP 147/78; PULSE 73; RESP 18; TEMP 36.2; O2SAT 96
[2023-06-14] MEDS: clonazePAM 1 MG TABLET PO (08:37)
[2023-06-14] MEDS: Tamsulosin HCL 0.4 MG CAPSULE PO (08:37)
[2023-06-14] MEDS: Divalproex Sodium 500 MG TABLET.DR PO ×3 (08:37→20:57)
[2023-06-14] MEDS: FLUoxetine HCl 20 MG CAPSULE 60 MG PO (08:38)
[2023-06-14] MEDS: risperiDONE 1 MG TABLET PO ×2 (08:38→20:57)
--- NOTE | 2023-06-14 13:24 | P.PNPSI_ITS ---
Subjective Subjective Date of Service: 06/14/23 Reason For Visit: OCD, autism spectrum disorder Interim History: calm, cooperative. reports he met with staff yesterday and that it went well. no requests or complaints. informed klonopin decreased to 0.75 BID from 1 BID and feng check VPA tomorrow morning. per staff, mild anxiety. visible but generally withdrawn/guarded. vague. denies AH but appears preoccupied. was following female counselor around last NOC and standing at RN station staring at her when she was in RN station. c/o hemorrhoid pain. poor PO intake, 20% bfast yesterday and 10% dinner. Mental Status Exam Mental Status Exam Narrative: calm, cooperative. no PMA/PMR. speech decr amount, loudness. incr latency. decr prosody. thoughts linear and logical. affect constricted, hypo-intense, non-labile. mood not assessed. no SI/HI/AVH expressed. Diagnostics Vital Signs (24Hr): Vital Signs - 24 hr 06/13/23 18:00 06/14/23 07:15 Temperature 98.3 F 97.1 F Pulse Rate 80 73 Respiratory Rate 20 18 Blood Pressure 123/62 147/78 H Pulse Oximetry 96 96 Oxygen Delivery Method Room Air Room Air BMI result Body Mass Index 29.4 Labs 06/08/23 08:21 06/08/23 08:21 Medications Medications Current Medications Acetaminophen (Acetaminophen 325 Mg Tablet) 650 mg PO Q6H PRN PRN Reason: Headache/Pain Mild Scale (1-3) Last Admin: 06/14/23 02:01 Dose: 650 mg Al Hydroxide/Mg Hydroxide (Magnesium Hydrox/Alum Hydrox 30 Ml Oral.Susp) 30 ml PO Q6H PRN PRN Reason: Heartburn/Nausea Clonazepam (Clonazepam 0.5 Mg Tablet) 0.75 mg PO BID [facility] Divalproex Sodium (Divalproex Sodium 500 Mg Tablet.Dr) 500 mg PO TID [facility] Last Admin: 06/14/23 08:37 Dose: 500 mg Fluoxetine HCl (Fluoxetine Hcl 20 Mg Capsule) 60 mg PO DAILY [facility] Last Admin: 06/14/23 08:38 Dose: 60 mg Hydroxyzine HCl (Hydroxyzine Hcl 25 Mg Tablet) 25 mg PO Q6H PRN PRN Reason: Anxiety Hydroxyzine HCl (Hydroxyzine Hcl 50 Mg Tablet) 50 mg PO Q6H PRN PRN Reason: anxiety/insomnia Last Admin: 06/11/23 20:52 Dose: 50 mg Levothyroxine Sodium (Levothyroxine Sodium 50 Mcg Tablet) 50 mcg PO DAILY@0600 [facility] Last Admin: 06/14/23 05:49 Dose: 50 mcg Magnesium Hydroxide (Milk Of Magnesia 30 Ml Oral.Susp) 30 ml PO DAILY PRN PRN Reason: Constipation Nicotine (Nicotine 21 Mg Patch.Td24) 21 mg TRANSDERMA DAILY PRN PRN Reason: smoking cessation Nicotine Polacrilex (Nicotine Polacrilex 2 Mg Gum) 4 mg BUCCAL Q2H PRN PRN Reason: Nicotine Cravings Olanzapine (Olanzapine 5 Mg Tablet) 5 mg PO TID PRN PRN Reason: agitation Omeprazole (Omeprazole 40 Mg Capsule.Dr) 40 mg PO DAILY@0630 [facility] Last Admin: 06/14/23 06:46 Dose: 40 mg Risperidone (Risperidone 1 Mg Tablet) 1 mg PO BID [facility] Last Admin: 06/14/23 08:38 Dose: 1 mg Tamsulosin HCl (Tamsulosin Hcl 0.4 Mg Capsule) 0.4 mg PO DAILY [facility] Last Admin: 06/14/23 08:37 Dose: 0.4 mg Trazodone HCl (Trazodone Hcl 50 Mg Tablet) 50 mg PO BEDTIME MRX1 PRN PRN Reason: Insomnia Last Admin: 06/14/23 02:01 Dose: 50 mg Allergies Allergies Allergy/AdvReac Type Severity Reaction Status Date / Time Penicillins Allergy Unknown Verified 06/07/23 16:27 Assessment & Plan Assessment & Plan (1) Psychosis: Status: Acute Code(s): F29 - Unspecified psychosis not due to a substance or known physiological condition Plan the patient is a middle-aged male with poor social support recently discharged from [place] due to sexually inappropriate behavior was brought from another center due to sexual disinhibition, poor impulse control a and psychotic symptoms. The patient is a very poor historian he is unable to provide further details regarding his past medical history or psychiatric history. Plan 06/09: continue tx. 06/10: continue tx. 06/11: continue tx. 06/12: behaviors in control, no inappropriate sexual conduct. continue current mgmt. outpt staff to come tomorrow to assess pt's level of functioning. 06/13: stable, no concerning behaviors. continue current mgmt. 06/14: stalking behavior last night. decrease klonopin from 1 mg BID to 0.75 mg BID in effort to decrease disinhibition. check VPA trough level and associated labs tomorrow morning. was seen by alf staff yesterday, awaiting their feedback. Reason for continued inpatient stay Substantial Risk for: harm to self, harm to others, inability to function and rapid decompensation Time Spent With Patient Time: Total time managing care of this patient today __25__ minutes.
[2023-06-14 19:45] VITALS: BP 111/90; PULSE 86; RESP 18; TEMP 36.9; O2SAT 98
[2023-06-14] MEDS: clonazePAM 0.5 MG TABLET 0.75 MG PO (20:56)
[2023-06-15] MEDS: Levothyroxine Sodium 50 MCG TABLET PO (06:47)
[2023-06-15 07:00] VITALS: BMI 31.3
[2023-06-15] MEDS: Omeprazole 40 MG CAPSULE.DR PO (07:12)
[2023-06-15 07:20] VITALS: BP 126/55; PULSE 63; RESP 16; TEMP 36.4; O2SAT 95
[2023-06-15 08:19] LABS: MANUAL DIFF FLAG NO
[2023-06-15 08:23] LABS: Basophils Percent Auto 0.5 % (0-2); Eosinophils Absolute Auto 0.2 X10*3/uL (0.0-0.4); Eosinophils Percent Auto 2.5 % (0-4); Hematocrit 39.5 % (42.0-52.0); Hemoglobin 13.4 g/dl (14.0-18.0); Imm Gran Abs Auto 0.04 X10*3/uL (0.00-0.03); Imm Gran Pct Auto 0.7 % (0.0-0.4); Lymphocytes Absolute Auto 3.1 X10*3/uL (1.2-4.9); Mean Corpuscular HGB Conc 33.9 g/dl (31.0-36.0); Mean Corpuscular Volume 91.4 fL (80.0-98.0); Mean Platelet Volume 9.7 fL (9.4-12.4); Monocytes Absolute Auto 0.7 X10*3/uL (0.1-1.2); Monocytes Percent Auto 10.9 % (2-11); Neutrophils Absolute Auto 2.1 x10*3/uL (2.0-8.3); Neutrophils Percent Auto 34.4 % (45-73); Platelet Count 151 X10*3/uL (160-400); Red Blood Count 4.32 X10*6/uL (4.60-5.80); Red Cell Distribution Width 12.6 % (11.0-16.0); White Blood Count 6.1 X10*3/uL (4.8-10.8)
[2023-06-15 08:27] LABS: Ammonia 44 umol/L (13-55)
[2023-06-15 08:29] LABS: Estimated Average Glucose 91 mg/dL; Hemoglobin A1c % 4.8 % (<6.0)
[2023-06-15 08:32] LABS: Valproate 54.7 mcg/mL (50.0-100.0)
[2023-06-15 08:42] LABS: Alanine Aminotransferase 16 U/L (0-40); Albumin Level 3.4 g/dL (3.5-5.0); Alkaline Phosphatase 38 U/L (39-117); Anion Gap 9 (12-20); Aspartate Amino Transferase 14 U/L (5-37); Bilirubin Direct 0.1 mg/dL (0.0-0.5); Bilirubin Total 0.3 mg/dL (0.0-1.0); Blood Urea Nitrogen 13 mg/dL (9-16); Calcium 8.7 mg/dL (8.4-10.2); Carbon Dioxide 29 mmol/L (22-29); Chloride 104 mmol/L (96-108); Creatinine Clr Calc Pharmacy 113.8; Estimated Glomerular Filt Rate > 60; Glucose Random 95 mg/dL (60-115); Sodium 138 mmol/L (135-145)
[2023-06-15 08:56] LABS: TSH reflex Free T4 4.37 uIU/mL (0.32-4.0)
[2023-06-15] MEDS: clonazePAM 0.5 MG TABLET 0.75 MG PO ×2 (09:08→21:04)
[2023-06-15] MEDS: FLUoxetine HCl 20 MG CAPSULE 60 MG PO (09:08)
[2023-06-15] MEDS: Tamsulosin HCL 0.4 MG CAPSULE PO (09:09)
[2023-06-15] MEDS: Divalproex Sodium 500 MG TABLET.DR PO ×3 (09:09→21:04)
[2023-06-15] MEDS: risperiDONE 1 MG TABLET PO ×2 (09:09→21:04)
[2023-06-15 09:10] LABS: Folate 7.5 ng/mL (> or = 4.0); Vitamin B12 463 pg/mL (200-900)
[2023-06-15] MEDS: Docusate Sodium 100 MG CAPSULE 200 MG PO (10:58)
--- NOTE | 2023-06-15 14:26 | P.PNPSI_ITS ---
Subjective Subjective Date of Service: 06/15/23 Reason For Visit: OCD, autism spectrum disorder Interim History: calm, cooperative, pleasant. c/o leg pain, leg appears nml. asking for colace. labs reviewed. per staff, flat, guarded. staring at female staff, difficult to redirect. slept about 6 hours. throbbing leg pain, assessed by laz DC and discussed with this television writer. Mental Status Exam Mental Status Exam Narrative: calm, cooperative. no PMA/PMR. speech decr amount. nml loudness, latency. decr prosody. thoughts linear and logical. affect constricted, hypo-intense, non-labile. mood not assessed. no SI/HI/AVH expressed. Diagnostics Vital Signs (24Hr): Vital Signs - 24 hr 06/14/23 19:45 06/15/23 07:20 Temperature 98.4 F 97.5 F Pulse Rate 86 63 Respiratory Rate 18 16 Blood Pressure 111/90 H 126/55 L Pulse Oximetry 98 95 Oxygen Delivery Method Room Air Room Air BMI result Body Mass Index 31.3 Labs 06/15/23 08:11 06/15/23 08:11 Labs: Laboratory Results - last 48 hr 06/15/23 08:11 WBC 6.1 RBC 4.32 L Hgb 13.4 L Hct 39.5 L MCV 91.4 MCH 31.0 MCHC 33.9 RDW 12.6 Plt Count 151 L MPV 9.7 Immature Gran % (Auto) 0.7 H Neut % (Auto) 34.4 L Lymph % (Auto) 51.0 H [place] % (Auto) 10.9 Eos % (Auto) 2.5 Baso % (Auto) 0.5 Lymph # (Auto) 3.1 [place] # (Auto) 0.7 Eos # (Auto) 0.2 Baso # (Auto) 0.0 Abs Immat Gran (auto) 0.04 H Absolute Neuts (auto) 2.1 Absolute Nucleated RBC 0.000 Nucleated RBC % (auto) 0.0 Sodium 138 Potassium 4.0 Chloride 104 Carbon Dioxide 29 Anion Gap 9 L BUN 13 Creatinine 0.72 Estim Creat Clear Calc 113.8 Estimated GFR > 60 Random Glucose 95 Estimat Average Glucose 91 Hemoglobin A1c % 4.8 Calcium 8.7 D Total Bilirubin 0.3 Direct Bilirubin 0.1 AST 14 ALT 16 Alkaline Phosphatase 38 L Ammonia 44 Total Protein 6.0 L Albumin 3.4 L Vitamin B12 463 Folate 7.5 TSH 4.37 H Free T4 1.10 Valproic Acid 54.7 Medications Medications Current Medications Acetaminophen (Acetaminophen 325 Mg Tablet) 650 mg PO Q6H PRN PRN Reason: Headache/Pain Mild Scale (1-3) Last Admin: 06/14/23 02:01 Dose: 650 mg Al Hydroxide/Mg Hydroxide (Magnesium Hydrox/Alum Hydrox 30 Ml Oral.Susp) 30 ml PO Q6H PRN PRN Reason: Heartburn/Nausea Clonazepam (Clonazepam 0.5 Mg Tablet) 0.75 mg PO BID [facility] Last Admin: 06/15/23 09:08 Dose: 0.75 mg Divalproex Sodium (Divalproex Sodium 500 Mg Tablet.) 500 mg PO TID [facility] Last Admin: 06/15/23 09:09 Dose: 500 mg Docusate Sodium (Docusate Sodium 100 Mg Capsule) 200 mg PO DAILY [facility] Last Admin: 06/15/23 10:58 Dose: 200 mg Fluoxetine HCl (Fluoxetine Hcl 20 Mg Capsule) 60 mg PO DAILY [facility] Last Admin: 06/15/23 09:08 Dose: 60 mg Hydroxyzine HCl (Hydroxyzine Hcl 25 Mg Tablet) 25 mg PO Q6H PRN PRN Reason: Anxiety Hydroxyzine HCl (Hydroxyzine Hcl 50 Mg Tablet) 50 mg PO Q6H PRN PRN Reason: anxiety/insomnia Last Admin: 06/11/23 20:52 Dose: 50 mg Ibuprofen (Ibuprofen 600 Mg Tablet) 600 mg PO Q6H PRN PRN Reason: Pain, Moderate(Pain Scale 4-6) Levothyroxine Sodium (Levothyroxine Sodium 50 Mcg Tablet) 50 mcg PO DAILY@0600 [facility] Last Admin: 06/15/23 06:47 Dose: 50 mcg Magnesium Hydroxide (Milk Of Magnesia 30 Ml Oral.Susp) 30 ml PO DAILY PRN PRN Reason: Constipation Nicotine (Nicotine 21 Mg Patch.Td24) 21 mg TRANSDERMA DAILY PRN PRN Reason: smoking cessation Nicotine Polacrilex (Nicotine Polacrilex 2 Mg Gum) 4 mg BUCCAL Q2H PRN PRN Reason: Nicotine Cravings Olanzapine (Olanzapine 5 Mg Tablet) 5 mg PO TID PRN PRN Reason: agitation Omeprazole (Omeprazole 40 Mg Capsule.) 40 mg PO DAILY@0630 [facility] Last Admin: 06/15/23 07:12 Dose: 40 mg Risperidone (Risperidone 1 Mg Tablet) 1 mg PO BID [facility] Last Admin: 06/15/23 09:09 Dose: 1 mg Tamsulosin HCl (Tamsulosin Hcl 0.4 Mg Capsule) 0.4 mg PO DAILY [facility] Last Admin: 06/15/23 09:09 Dose: 0.4 mg Trazodone HCl (Trazodone Hcl 50 Mg Tablet) 50 mg PO BEDTIME MRX1 PRN PRN Reason: Insomnia Last Admin: 06/14/23 20:57 Dose: 50 mg Allergies Allergies Allergy/AdvReac Type Severity Reaction Status Date / Time Penicillins Allergy Unknown Verified 06/07/23 16:27 Assessment & Plan Assessment & Plan (1) Psychosis: Status: Acute Code(s): F29 - Unspecified psychosis not due to a substance or known physiological condition Plan the patient is a middle-aged male with poor social support recently discharged from [facility] due to sexually inappropriate behavior was brought from another center due to sexual disinhibition, poor impulse control a and psychotic symptoms. The patient is a very poor historian he is unable to provide further details regarding his past medical history or psychiatric history. Plan 06/09: continue tx. 06/10: continue tx. 06/11: continue tx. 06/12: behaviors in control, no inappropriate sexual conduct. continue current mgmt. outpt staff to come tomorrow to assess pt's level of functioning. 06/13: stable, no concerning behaviors. continue current mgmt. 06/14: stalking behavior last night. decrease klonopin from 1 mg BID to 0.75 mg BID in effort to decrease disinhibition. check VPA trough level and associated labs tomorrow morning. was seen by alf staff yesterday, awaiting their feedback. 06/15: staring at female staff. at baseline per staff, planning for DC next monday. VPA 54.7, no concerning labs. appears a bit more awake today. start colace 200 due to c/o hemorrhoids (pt preference for Tx). Reason for continued inpatient stay Substantial Risk for: harm to others and inability to function Time Spent With Patient Time: Total time managing care of this patient today __25__ minutes.
--- NOTE | 2023-06-15 17:13 | PC.NURSE ---
At 1640, pt approached staff and stated I soiled myself. RN assessed pt and he was incontinent of feces and urine. Pt had feces on the floor of his bathroom and bedroom and said I couldn't make it to the toilet. Pt had feces stuck to his legs and needed assistance scrubbing it off. RN minimally assisted pt in the shower. Pt changed into a brief and clean hospital [facility].
[2023-06-15] MEDS: traZODone HCL 50 MG TABLET PO ×2 (21:04→23:10)
[2023-06-15 21:09] VITALS: BP 119/70; PULSE 88; TEMP 36.2; O2SAT 97
[2023-06-16] MEDS: Levothyroxine Sodium 50 MCG TABLET PO (06:35)
[2023-06-16 07:00] VITALS: BP 115/64; PULSE 63; RESP 16; TEMP 36.2; O2SAT 97
[2023-06-16] MEDS: Tamsulosin HCL 0.4 MG CAPSULE PO (09:16)
[2023-06-16] MEDS: Omeprazole 40 MG CAPSULE.DR PO (09:16)
[2023-06-16] MEDS: Divalproex Sodium 500 MG TABLET.DR PO ×3 (09:16→20:46)
[2023-06-16] MEDS: Docusate Sodium 100 MG CAPSULE 200 MG PO (09:16)
[2023-06-16] MEDS: clonazePAM 0.5 MG TABLET 0.75 MG PO (09:17)
[2023-06-16] MEDS: FLUoxetine HCl 20 MG CAPSULE 60 MG PO (09:18)
[2023-06-16] MEDS: risperiDONE 1 MG TABLET PO ×2 (09:20→20:46)
--- NOTE | 2023-06-16 14:49 | P.PNPSI_ITS ---
Subjective Subjective Date of Service: 06/16/23 Reason For Visit: OCD, autism spectrum disorder Interim History: c/o pedal edema, informed TEDs would be ordered for him. tired. agreeable to further decrease klonopin from 0.75 BID to 0.5 BID. per staff, planning to discharge on monday. denies dep/anx. denies AVH but appears to RIS. not attending groups. taking meals and meds. incontinent of urine x2. B/L pedal edema, chronic, for which he usually wears compression stockings. slept about 7 hours over night. Mental Status Exam Mental Status Exam Narrative: calm, cooperative. no PMA/PMR. speech decr amount. nml loudness, latency. decr prosody. thoughts linear and logical. affect constricted, hypo-intense, non-labile. mood not assessed. no SI/HI/AVH expressed. Diagnostics Vital Signs (24Hr): Vital Signs - 24 hr 06/15/23 21:09 06/16/23 07:00 Temperature 97.2 F 97.1 F Pulse Rate 88 63 Respiratory Rate 16 Blood Pressure 119/70 115/64 Pulse Oximetry 97 97 Oxygen Delivery Method Room Air Room Air BMI result Body Mass Index 31.3 Labs 06/15/23 08:11 06/15/23 08:11 Labs: Laboratory Results - last 48 hr 06/15/23 08:11 WBC 6.1 RBC 4.32 L Hgb 13.4 L Hct 39.5 L MCV 91.4 MCH 31.0 MCHC 33.9 RDW 12.6 Plt Count 151 L MPV 9.7 Immature Gran % (Auto) 0.7 H Neut % (Auto) 34.4 L Lymph % (Auto) 51.0 H [place] % (Auto) 10.9 Eos % (Auto) 2.5 Baso % (Auto) 0.5 Lymph # (Auto) 3.1 [place] # (Auto) 0.7 Eos # (Auto) 0.2 Baso # (Auto) 0.0 Abs Immat Gran (auto) 0.04 H Absolute Neuts (auto) 2.1 Absolute Nucleated RBC 0.000 Nucleated RBC % (auto) 0.0 Sodium 138 Potassium 4.0 Chloride 104 Carbon Dioxide 29 Anion Gap 9 L BUN 13 Creatinine 0.72 Estim Creat Clear Calc 113.8 Estimated GFR > 60 Random Glucose 95 Estimat Average Glucose 91 Hemoglobin A1c % 4.8 Calcium 8.7 D Total Bilirubin 0.3 Direct Bilirubin 0.1 AST 14 ALT 16 Alkaline Phosphatase 38 L Ammonia 44 Total Protein 6.0 L Albumin 3.4 L Vitamin B12 463 Folate 7.5 TSH 4.37 H Free T4 1.10 Valproic Acid 54.7 Medications Medications Current Medications Acetaminophen (Acetaminophen 325 Mg Tablet) 650 mg PO Q6H PRN PRN Reason: Headache/Pain Mild Scale (1-3) Last Admin: 06/14/23 02:01 Dose: 650 mg Al Hydroxide/Mg Hydroxide (Magnesium Hydrox/Alum Hydrox 30 Ml Oral.Susp) 30 ml PO Q6H PRN PRN Reason: Heartburn/Nausea Clonazepam (Clonazepam 0.5 Mg Tablet) 0.5 mg PO BID [facility] Divalproex Sodium (Divalproex Sodium 500 Mg Tablet.Dr) 500 mg PO TID [facility] Last Admin: 06/16/23 09:16 Dose: 500 mg Docusate Sodium (Docusate Sodium 100 Mg Capsule) 200 mg PO DAILY [facility] Last Admin: 06/16/23 09:16 Dose: 200 mg Fluoxetine HCl (Fluoxetine Hcl 20 Mg Capsule) 60 mg PO DAILY [facility] Last Admin: 06/16/23 09:18 Dose: 60 mg Hydroxyzine HCl (Hydroxyzine Hcl 25 Mg Tablet) 25 mg PO Q6H PRN PRN Reason: Anxiety Hydroxyzine HCl (Hydroxyzine Hcl 50 Mg Tablet) 50 mg PO Q6H PRN PRN Reason: anxiety/insomnia Last Admin: 06/11/23 20:52 Dose: 50 mg Ibuprofen (Ibuprofen 600 Mg Tablet) 600 mg PO Q6H PRN PRN Reason: Pain, Moderate(Pain Scale 4-6) Levothyroxine Sodium (Levothyroxine Sodium 50 Mcg Tablet) 50 mcg PO DAILY@0600 [facility] Last Admin: 06/16/23 06:35 Dose: 50 mcg Magnesium Hydroxide (Milk Of Magnesia 30 Ml Oral.Susp) 30 ml PO DAILY PRN PRN Reason: Constipation Nicotine (Nicotine 21 Mg Patch.Td24) 21 mg TRANSDERMA DAILY PRN PRN Reason: smoking cessation Nicotine Polacrilex (Nicotine Polacrilex 2 Mg Gum) 4 mg BUCCAL Q2H PRN PRN Reason: Nicotine Cravings Olanzapine (Olanzapine 5 Mg Tablet) 5 mg PO TID PRN PRN Reason: agitation Omeprazole (Omeprazole 40 Mg Capsule.) 40 mg PO DAILY@0630 [facility] Last Admin: 06/16/23 09:16 Dose: 40 mg Risperidone (Risperidone 1 Mg Tablet) 1 mg PO BID [facility] Last Admin: 06/16/23 09:20 Dose: 1 mg Tamsulosin HCl (Tamsulosin Hcl 0.4 Mg Capsule) 0.4 mg PO DAILY [facility] Last Admin: 06/16/23 09:16 Dose: 0.4 mg Trazodone HCl (Trazodone Hcl 50 Mg Tablet) 50 mg PO BEDTIME MRX1 PRN PRN Reason: Insomnia Last Admin: 06/15/23 23:10 Dose: 50 mg Allergies Allergies Allergy/AdvReac Type Severity Reaction Status Date / Time Penicillins Allergy Unknown Verified 06/07/23 16:27 Assessment & Plan Assessment & Plan (1) Psychosis: Status: Acute Code(s): F29 - Unspecified psychosis not due to a substance or known physiological condition Plan the patient is a middle-aged male with poor social support recently discharged from [facility] due to sexually inappropriate behavior was brought from another center due to sexual disinhibition, poor impulse control a and psychotic symptoms. The patient is a very poor historian he is unable to provide further details regarding his past medical history or psychiatric history. Plan 06/09: continue tx. 06/10: continue tx. 06/11: continue tx. 06/12: behaviors in control, no inappropriate sexual conduct. continue current mgmt. outpt staff to come tomorrow to assess pt's level of functioning. 06/13: stable, no concerning behaviors. continue current mgmt. 06/14: stalking behavior last night. decrease klonopin from 1 mg BID to 0.75 mg BID in effort to decrease disinhibition. check VPA trough level and associated labs tomorrow morning. was seen by nursing home staff yesterday, awaiting their feedback. 06/15: staring at female staff. at baseline per staff, planning for DC next monday. VPA 54.7, no concerning labs. appears a bit more awake today. start colace 200 due to c/o hemorrhoids (pt preference for Tx). 06/16: start TEDs for pedal edema. decrease klonopin to 0.5 BID in effort to reduce impulsivity and disinhibition. planning for monday discharge. Reason for continued inpatient stay Substantial Risk for: inability to function and rapid decompensation Time Spent With Patient Time: Total time managing care of this patient today ____ minutes.
[2023-06-16 20:00] VITALS: BP 152/73; PULSE 109; RESP 18; TEMP 36.8; O2SAT 94
[2023-06-16] MEDS: clonazePAM 0.5 MG TABLET PO (20:46)
[2023-06-17 06:00] VITALS: BP 128/62; PULSE 80; TEMP 36.1; O2SAT 97
[2023-06-17] MEDS: Levothyroxine Sodium 50 MCG TABLET PO (06:30)
[2023-06-17] MEDS: Tamsulosin HCL 0.4 MG CAPSULE PO (08:33)
[2023-06-17] MEDS: risperiDONE 1 MG TABLET PO ×2 (08:33→20:59)
[2023-06-17] MEDS: Omeprazole 40 MG CAPSULE.DR PO (08:33)
[2023-06-17] MEDS: clonazePAM 0.5 MG TABLET PO ×2 (08:33→20:59)
[2023-06-17] MEDS: Docusate Sodium 100 MG CAPSULE 200 MG PO (08:33)
[2023-06-17] MEDS: FLUoxetine HCl 20 MG CAPSULE 60 MG PO (08:33)
[2023-06-17] MEDS: Divalproex Sodium 500 MG TABLET.DR PO ×3 (08:33→20:59)
--- NOTE | 2023-06-17 13:11 | P.PNPSI_ITS ---
Subjective Subjective Date of Service: 06/17/23 Reason For Visit: OCD, autism spectrum disorder Medical Problems Affecting Mental Status: No Interim History: met with patient. Discussed with Nursing. Ongoing poor insight. Some incontinence. With advertising copywriter patient did not want to engage in interview today and stated he would talk tomorrow. Medication Compliance: Yes Side effects from medications: No Attending Groups: No Review of Systems Acute medical concerns: No Review of Systems Review of Systems Yes Unobtainable due to mental status Mental Status Exam Mental Status Exam Narrative: In bed. Hospital clothing. Self-care is limited. Declined to engage in interview today and reported he would speak tomorrow. Diagnostics Vital Signs (24Hr): Vital Signs - 24 hr 06/16/23 20:00 06/17/23 06:00 Temperature 98.3 F 97.0 F Pulse Rate 109 H 80 Respiratory Rate 18 Blood Pressure 152/73 H 128/62 Pulse Oximetry 94 97 Oxygen Delivery Method Room Air Room Air BMI result Body Mass Index 31.3 Labs 06/15/23 08:11 06/15/23 08:11 Medications Medications Current Medications Acetaminophen (Acetaminophen 325 Mg Tablet) 650 mg PO Q6H PRN PRN Reason: Headache/Pain Mild Scale (1-3) Last Admin: 06/14/23 02:01 Dose: 650 mg Al Hydroxide/Mg Hydroxide (Magnesium Hydrox/Alum Hydrox 30 Ml Oral.Susp) 30 ml PO Q6H PRN PRN Reason: Heartburn/Nausea Clonazepam (Clonazepam 0.5 Mg Tablet) 0.5 mg PO BID [facility] Last Admin: 06/17/23 08:33 Dose: 0.5 mg Divalproex Sodium (Divalproex Sodium 500 Mg Tablet.) 500 mg PO TID [facility] Last Admin: 06/17/23 08:33 Dose: 500 mg Docusate Sodium (Docusate Sodium 100 Mg Capsule) 200 mg PO DAILY [facility] Last Admin: 06/17/23 08:33 Dose: 200 mg Fluoxetine HCl (Fluoxetine Hcl 20 Mg Capsule) 60 mg PO DAILY [facility] Last Admin: 06/17/23 08:33 Dose: 60 mg Hydroxyzine HCl (Hydroxyzine Hcl 25 Mg Tablet) 25 mg PO Q6H PRN PRN Reason: Anxiety Hydroxyzine HCl (Hydroxyzine Hcl 50 Mg Tablet) 50 mg PO Q6H PRN PRN Reason: anxiety/insomnia Last Admin: 06/11/23 20:52 Dose: 50 mg Ibuprofen (Ibuprofen 600 Mg Tablet) 600 mg PO Q6H PRN PRN Reason: Pain, Moderate(Pain Scale 4-6) Levothyroxine Sodium (Levothyroxine Sodium 50 Mcg Tablet) 50 mcg PO DAILY@0600 [facility] Last Admin: 06/17/23 06:30 Dose: 50 mcg Magnesium Hydroxide (Milk Of Magnesia 30 Ml Oral.Susp) 30 ml PO DAILY PRN PRN Reason: Constipation Nicotine (Nicotine 21 Mg Patch.Td24) 21 mg TRANSDERMA DAILY PRN PRN Reason: smoking cessation Nicotine Polacrilex (Nicotine Polacrilex 2 Mg Gum) 4 mg BUCCAL Q2H PRN PRN Reason: Nicotine Cravings Olanzapine (Olanzapine 5 Mg Tablet) 5 mg PO TID PRN PRN Reason: agitation Omeprazole (Omeprazole 40 Mg Capsule.Dr) 40 mg PO DAILY@0630 [facility] Last Admin: 06/17/23 08:33 Dose: 40 mg Risperidone (Risperidone 1 Mg Tablet) 1 mg PO BID [facility] Last Admin: 06/17/23 08:33 Dose: 1 mg Tamsulosin HCl (Tamsulosin Hcl 0.4 Mg Capsule) 0.4 mg PO DAILY [facility] Last Admin: 06/17/23 08:33 Dose: 0.4 mg Trazodone HCl (Trazodone Hcl 50 Mg Tablet) 50 mg PO BEDTIME MRX1 PRN PRN Reason: Insomnia Last Admin: 06/15/23 23:10 Dose: 50 mg Allergies Allergies Allergy/AdvReac Type Severity Reaction Status Date / Time Penicillins Allergy Unknown Verified 06/07/23 16:27 Assessment & Plan Assessment & Plan (1) Psychosis: Status: Acute Code(s): F29 - Unspecified psychosis not due to a substance or known physiological condition Plan the patient is a middle-aged male with poor social support recently discharged from [place] due to sexually inappropriate behavior was brought from another center due to sexual disinhibition, poor impulse control a and psychotic symptoms. The patient is a very poor historian he is unable to provide further details regarding his past medical history or psychiatric history. Plan 06/09: continue tx. 06/10: continue tx. 06/11: continue tx. 06/12: behaviors in control, no inappropriate sexual conduct. continue current mgmt. outpt staff to come tomorrow to assess pt's level of functioning. 06/13: stable, no concerning behaviors. continue current mgmt. 06/14: stalking behavior last night. decrease klonopin from 1 mg BID to 0.75 mg BID in effort to decrease disinhibition. check VPA trough level and associated labs tomorrow morning. was seen by shelter staff yesterday, awaiting their feedback. 06/15: staring at female staff. at baseline per staff, planning for DC next monday. VPA 54.7, no concerning labs. appears a bit more awake today. start colace 200 due to c/o hemorrhoids (pt preference for Tx). 06/16: start TEDs for pedal edema. decrease klonopin to 0.5 BID in effort to reduce impulsivity and disinhibition. planning for monday discharge. 06/17: No changes Reason for continued inpatient stay Substantial Risk for: rapid decompensation Time Spent With Patient Time: Total time managing care of this patient today ____ minutes.
[2023-06-17] MEDS: Acetaminophen 325 MG TABLET 650 MG PO (14:24)
[2023-06-17 20:27] VITALS: BP 113/61; PULSE 75; RESP 16; TEMP 36.6; O2SAT 96
--- NOTE | 2023-06-18 00:18 | PC.NURSE ---
At 2200 asked patient if he wanted help removing his ELENA stockings, patient requested to keep them on. Patient reports that they are helping alot with his foot pain.
[2023-06-18] MEDS: Levothyroxine Sodium 50 MCG TABLET PO (06:38)
[2023-06-18] MEDS: Docusate Sodium 100 MG CAPSULE 200 MG PO (08:01)
[2023-06-18] MEDS: Omeprazole 40 MG CAPSULE.DR PO (08:01)
[2023-06-18] MEDS: Divalproex Sodium 500 MG TABLET.DR PO ×3 (08:01→21:01)
[2023-06-18] MEDS: FLUoxetine HCl 20 MG CAPSULE 60 MG PO (08:01)
[2023-06-18] MEDS: clonazePAM 0.5 MG TABLET PO ×2 (08:02→21:02)
[2023-06-18] MEDS: Tamsulosin HCL 0.4 MG CAPSULE PO (08:02)
[2023-06-18] MEDS: risperiDONE 1 MG TABLET PO ×2 (08:02→21:01)
[2023-06-18 08:03] VITALS: BP 105/52; PULSE 64; TEMP 36.8; O2SAT 93
--- NOTE | 2023-06-18 10:15 | P.PNPSI_ITS ---
Subjective Subjective Date of Service: 06/18/23 Reason For Visit: OCD, autism spectrum disorder Interim History: met with patient. Discussed with Nursing. Ongoing poor insight. With medical technical writer patient did not want to engage in interview again today I'm fine . Medication Compliance: Yes Side effects from medications: No Attending Groups: No Review of Systems Acute medical concerns: No Review of Systems Review of Systems nothing acute noted Yes Unobtainable due to mental status Mental Status Exam Mental Status Exam Narrative: In bed. Hospital clothing. Self-care is limited. Declined to engage in interview today. No evidence of SI, HI, psychosis or agitation Diagnostics Vital Signs (24Hr): Vital Signs - 24 hr 06/17/23 20:27 06/18/23 08:03 Temperature 98 F 98.3 F Pulse Rate 75 64 Respiratory Rate 16 Blood Pressure 113/61 105/52 L Pulse Oximetry 96 93 Oxygen Delivery Method Room Air Room Air BMI result Body Mass Index 31.3 Labs 06/15/23 08:11 06/15/23 08:11 Medications Medications Current Medications Acetaminophen (Acetaminophen 325 Mg Tablet) 650 mg PO Q6H PRN PRN Reason: Headache/Pain Mild Scale (1-3) Last Admin: 06/17/23 14:24 Dose: 650 mg Al Hydroxide/Mg Hydroxide (Magnesium Hydrox/Alum Hydrox 30 Ml Oral.Susp) 30 ml PO Q6H PRN PRN Reason: Heartburn/Nausea Clonazepam (Clonazepam 0.5 Mg Tablet) 0.5 mg PO BID [facility] Last Admin: 06/18/23 08:02 Dose: 0.5 mg Divalproex Sodium (Divalproex Sodium 500 Mg Tablet.) 500 mg PO TID [facility] Last Admin: 06/18/23 08:01 Dose: 500 mg Docusate Sodium (Docusate Sodium 100 Mg Capsule) 200 mg PO DAILY [facility] Last Admin: 06/18/23 08:01 Dose: 200 mg Fluoxetine HCl (Fluoxetine Hcl 20 Mg Capsule) 60 mg PO DAILY [facility] Last Admin: 06/18/23 08:01 Dose: 60 mg Hydroxyzine HCl (Hydroxyzine Hcl 25 Mg Tablet) 25 mg PO Q6H PRN PRN Reason: Anxiety Hydroxyzine HCl (Hydroxyzine Hcl 50 Mg Tablet) 50 mg PO Q6H PRN PRN Reason: anxiety/insomnia Last Admin: 06/11/23 20:52 Dose: 50 mg Ibuprofen (Ibuprofen 600 Mg Tablet) 600 mg PO Q6H PRN PRN Reason: Pain, Moderate(Pain Scale 4-6) Levothyroxine Sodium (Levothyroxine Sodium 50 Mcg Tablet) 50 mcg PO DAILY@0600 [facility] Last Admin: 06/18/23 06:38 Dose: 50 mcg Magnesium Hydroxide (Milk Of Magnesia 30 Ml Oral.Susp) 30 ml PO DAILY PRN PRN Reason: Constipation Nicotine (Nicotine 21 Mg Patch.Td24) 21 mg TRANSDERMA DAILY PRN PRN Reason: smoking cessation Nicotine Polacrilex (Nicotine Polacrilex 2 Mg Gum) 4 mg BUCCAL Q2H PRN PRN Reason: Nicotine Cravings Olanzapine (Olanzapine 5 Mg Tablet) 5 mg PO TID PRN PRN Reason: agitation Omeprazole (Omeprazole 40 Mg Capsule.Dr) 40 mg PO DAILY@0630 [facility] Last Admin: 06/18/23 08:01 Dose: 40 mg Risperidone (Risperidone 1 Mg Tablet) 1 mg PO BID [facility] Last Admin: 06/18/23 08:02 Dose: 1 mg Tamsulosin HCl (Tamsulosin Hcl 0.4 Mg Capsule) 0.4 mg PO DAILY [facility] Last Admin: 06/18/23 08:02 Dose: 0.4 mg Trazodone HCl (Trazodone Hcl 50 Mg Tablet) 50 mg PO BEDTIME MRX1 PRN PRN Reason: Insomnia Last Admin: 06/15/23 23:10 Dose: 50 mg Allergies Allergies Allergy/AdvReac Type Severity Reaction Status Date / Time Penicillins Allergy Unknown Verified 06/07/23 16:27 Assessment & Plan Assessment & Plan (1) Psychosis: Status: Acute Code(s): F29 - Unspecified psychosis not due to a substance or known physiological condition Plan the patient is a middle-aged male with poor social support recently discharged from [facility] due to sexually inappropriate behavior was brought from another center due to sexual disinhibition, poor impulse control a and psychotic symptoms. The patient is a very poor historian he is unable to provide further details regarding his past medical history or psychiatric history. Plan 06/09: continue tx. 06/10: continue tx. 06/11: continue tx. 06/12: behaviors in control, no inappropriate sexual conduct. continue current mgmt. outpt staff to come tomorrow to assess pt's level of functioning. 06/13: stable, no concerning behaviors. continue current mgmt. 06/14: stalking behavior last night. decrease klonopin from 1 mg BID to 0.75 mg BID in effort to decrease disinhibition. check VPA trough level and associated labs tomorrow morning. was seen by [facility] staff yesterday, awaiting their feedback. 06/15: staring at female staff. at baseline per staff, planning for DC next monday. VPA 54.7, no concerning labs. appears a bit more awake today. start colace 200 due to c/o hemorrhoids (pt preference for Tx). 06/16: start TEDs for pedal edema. decrease klonopin to 0.5 BID in effort to reduce impulsivity and disinhibition. planning for monday discharge. 06/18: No changes Reason for continued inpatient stay Substantial Risk for: inability to function and rapid decompensation Time Spent With Patient Time: Total time managing care of this patient today ____ minutes.
[2023-06-18 19:50] VITALS: BP 141/87; PULSE 120; RESP 20; TEMP 36.6; O2SAT 97
[2023-06-18] MEDS: traZODone HCL 50 MG TABLET PO (23:53)
[2023-06-18] MEDS: OLANZapine 5 MG TABLET PO (23:53)
--- NOTE | 2023-06-18 23:55 | PC.NURSE ---
Sagar is noted to have hand tremors before taking his HS medications. He continues to stare at female staff inappropriately, he is guarded and states that he has a little depression. At 23:30 patient continued to c/o hand tremors continue and patient requested something for tremors. patient given PRN Zyprexa and trazodone both with pending effects
[2023-06-19] MEDS: Levothyroxine Sodium 50 MCG TABLET PO (05:32)
[2023-06-19] MEDS: Omeprazole 40 MG CAPSULE.DR PO (06:53)
[2023-06-19] MEDS: risperiDONE 1 MG TABLET PO ×2 (08:07→20:38)
[2023-06-19] MEDS: FLUoxetine HCl 20 MG CAPSULE 60 MG PO (08:07)
[2023-06-19] MEDS: Divalproex Sodium 500 MG TABLET.DR PO ×3 (08:07→20:38)
[2023-06-19] MEDS: Tamsulosin HCL 0.4 MG CAPSULE PO (08:07)
[2023-06-19] MEDS: Docusate Sodium 100 MG CAPSULE 200 MG PO (08:07)
[2023-06-19] MEDS: clonazePAM 0.5 MG TABLET PO ×2 (08:07→20:38)
[2023-06-19 08:20] VITALS: BP 116/65; PULSE 59; RESP 16; TEMP 36.2; O2SAT 96
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
[2023-06-19] MEDS: OLANZapine 5 MG TABLET PO (17:47)
[2023-06-19] MEDS: Acetaminophen 325 MG TABLET 650 MG PO (21:58)
[2023-06-19 22:36] VITALS: BP 116/77; PULSE 111; RESP 18; TEMP 36.8; O2SAT 94
[2023-06-20] MEDS: Levothyroxine Sodium 50 MCG TABLET PO (05:49)
[2023-06-20] MEDS: Omeprazole 40 MG CAPSULE.DR PO (06:57)
[2023-06-20] MEDS: Divalproex Sodium 500 MG TABLET.DR PO (08:24)
[2023-06-20] MEDS: risperiDONE 1 MG TABLET PO (08:24)
[2023-06-20] MEDS: FLUoxetine HCl 20 MG CAPSULE 60 MG PO (08:24)
[2023-06-20] MEDS: Docusate Sodium 100 MG CAPSULE 200 MG PO (08:25)
[2023-06-20] MEDS: Tamsulosin HCL 0.4 MG CAPSULE PO (08:25)
[2023-06-20] MEDS: clonazePAM 0.5 MG TABLET PO (08:25)
--- NOTE | 2023-06-20 11:12 | PC.NURSE ---
Patient is alert, fully oriented, pleasant and cooperative with discharge process. He denies ideation, plan or intent to harm self or others. [facility] where meds and appointments will be managed by staff
== END 2023-06-20 11:59 | disposition home or self-care (01) | DRG 885 ==
PROVIDERS: Psychiatry & Neurology Psychiatry; Admitting Provider Psychiatry & Neurology Psychiatry; Visit Provider Psychiatry & Neurology Psychiatry
DX: F20.9 Schizophrenia, unspecified (principal); E03.9 Hypothyroidism, unspecified; F84.0 Autistic disorder; N40.0 Benign prostatic hyperplasia without lower urinary tract symptoms; Z79.890 Hormone replacement therapy; Z79.899 Other long term (current) drug therapy
CPT/HCPCS: 36415; 80048; 80053; 80061; 80076; 80164; 82140; 82607; 82746; 83036; 84439; 84443; 85025

== ENCOUNTER → 2023-06-07 15:01 | Outpatient (BNV) | payer MEDICAID, SELFPAY | PROVIDERS: Admitting Provider Psychiatry & Neurology Psychiatry; Visit Provider Student in an Organized Health Care Education/Training Program | DX: Z00.8 Encounter for other general examination (principal) | CPT/HCPCS: 99222 ==

== ENCOUNTER → 2023-06-07 15:01 | Outpatient (BNV) | payer MEDICARE, MEDICAID, SELFPAY | PROVIDERS: Admitting Provider Psychiatry & Neurology Psychiatry; Visit Provider Psychiatry & Neurology Psychiatry | DX: F29 Unspecified psychosis not due to a substance or known physiological condition (principal) | CPT/HCPCS: 99231; 99232 ==